=== PATIENT | male | born 1955 | race Caucasian/White ===

== ENCOUNTER 2016-11-02 10:06 | Outpatient (CLI) | payer OTHER ==
--- NOTE | 2016-11-02 11:07 | DIAGNOSTIC IMAGING REPORT ---
PROCEDURE: CT ABDOMEN/PELVIS W/O CONTRAST INDICATION: BLOATING,ABNORMAL WT GAIN, EDEMA, CKD STAGE III TECHNIQUE: Noncontrast axial images were obtained of the entire abdomen and pelvis with sagittal and coronal reformations. COMPARISON: CT chest and 23:16. FINDINGS: ABDOMEN: New thickened septa and small bilateral pleural effusion suggestive of fluid overload. Minor bibasilar compressive atelectasis. Heart size is normal. Liver, gallbladder, pancreas, spleen, adrenal glands and left kidney are normal. 1.3 cm right renal cyst. Minor atherosclerosis of the aorta. Mild anasarca. Thickening of the anterior pararenal fascia with mild mesenteric edema.. Small shotty periaortic lymph nodes. PELVIS: Normal appendix. Central prostate dystrophic calcification. Bladder is unremarkable. No pelvic mass, free fluid or inflammatory changes. Small bilateral inguinal lymph nodes. Mild degenerative changes of the spine. IMPRESSION: 1. Thickened pulmonary septa, small bilateral pleural effusions and mild anasarca consistent with fluid overload. Consider renal or hepatic disease. Cardiac etiology is less likely given normal heart size. Low albumin state is also a consideration. 2. Results discussed with Meri Petersen. All CT scans at this facility use dose modulation, iterative reconstruction, and/or weight-based dosing when appropriate to reduce radiation dose to as low as reasonably achievable.
== END 2016-11-02 23:00 ==
LOC: LAB SRH 10:06 → CT SRH 10:06
DX: R14.0 Abdominal distension (gaseous) (principal); R63.5 Abnormal weight gain; R60.9 Edema, unspecified; N18.3 Chronic kidney disease, stage 3 (moderate)
CPT/HCPCS: 90074; 90100; 91320; 95059